=== PATIENT | female | born 1990 | race Two or more races ===

== ENCOUNTER 2022-03-16 11:08 | Emergency (ER) | payer OTHER ==
[~2022-03-16] VITALS: Ht 167.6 cm; Wt 85.7 kg
== END 2022-03-16 16:01 | disposition home or self-care (01) ==
LOC: ER 11:08
DX: O21.1 Hyperemesis gravidarum with metabolic disturbance (principal); Z3A.23 23 weeks gestation of pregnancy; U07.1 COVID-19

== ENCOUNTER 2022-05-19 11:55 | Emergency (ER) | payer OTHER ==
[~2022-05-19] VITALS: Ht 167.6 cm; Wt 90.7 kg
[2022-05-19] MEDS ORDERED: ATABEX OB TABL1 EACH PO (12:14)
[2022-05-19] MEDS ORDERED: ECOTRIN81 MG PO (12:14)
== END 2022-05-19 13:33 | disposition home or self-care (01) ==
LOC: ER 11:55
DX: K64.4 Residual hemorrhoidal skin tags (principal); K62.5 Hemorrhage of anus and rectum

== ENCOUNTER 2022-07-11 08:36 | Inpatient (IN) | payer OTHER ==
[~2022-07-11] VITALS: Ht 167.6 cm; Wt 3.6 kg
[~2022-07-11 08:36] MED LIST: ATABEX OB TABL1 EACH PO; ECOTRIN81 MG PO
== END 2022-07-14 14:40 | disposition home or self-care (01) | DRG 788 ==
LOC: LDR 08:36 → OB/GYN 20:39
PROVIDERS: ADMIT Obstetrics & Gynecology; ATTEND Obstetrics & Gynecology
PROC: 4A1HXCZ Monitoring of Products of Conception, Cardiac Rate, External Approach (ICD-10-PCS; 2022-07-11)
PROC: 10D00Z1 Extraction of Products of Conception, Low, Open Approach (ICD-10-PCS; principal; 2022-07-11 18:00)
DX: O42.02 Full-term premature rupture of membranes, onset of labor within 24 hours of rupture (principal); Z3A.40 40 weeks gestation of pregnancy; Z37.0 Single live birth; Z20.822 Contact with and (suspected) exposure to COVID-19